=== PATIENT | female | born 2000 | race Caucasian/White ===

== ENCOUNTER 2020-10-16 11:05 | Emergency (ER) | payer OTHER, SELFPAY ==
--- NOTE | 2020-10-16 11:14 | PC.NURSE ---
Pt arrived to unit via EMS- cooperative w/ changeover.
[2020-10-16 11:26] VITALS: BP 131/75; PULSE 91; RESP 20; TEMP 36.8; BMI 29.4
[2020-10-16 11:34] VITALS: RESP 20
--- NOTE | 2020-10-16 11:59 | ED_ITS ---
HPI - Anxiety General Chief Complaint: Psychiatric Symptoms Stated Complaint: ANXIETY Time Seen by Provider: 10/16/20 11:51 Source: EMS Mode of arrival: EMS Limitations: no limitations History of Present Illness HPI narrative: This is a pleasant 19-year-old female with past medical history that is significant for anxiety and depression who presents via EMS from work after having a panic attack. She reports that she has history of pretty significant anxiety as well as depression that was onset after several years ago she was on antidepressant medication however she moved from floor to mass and was feeling well so she stopped taking her antidepressants and antianxiety medication however soon after her symptoms started again and she does not have any primary care for psych provider and she has been on her medications. She is not sure what she was on in [place] but has been offered for past couple years. She denies any suicidal or homicidal ideation. States she does have history of panic attacks and today while at work she felt like she could not concentrate she filled or wound and started to hyperventilate and felt dazed started to have panic attack. States similar symptoms with prior episodes. States she does not have any specific triggers but does report that she feels she needs to be with her mother in [place] sometimes she misses her and this is also compounding her factors. MD complaint: anxiety Symptoms: dyspnea Severity: moderate Associated symptoms: denies other symptoms Related Data Previous Rx's Medication Instructions Recorded hydroxyzine HCl 25 mg PO BID PRN #14 tab 10/16/20 Allergies Allergy/AdvReac Type Severity Reaction Status Date / Time No Known Allergies* Allergy Uncoded 06/21/20 21:04 Review of Systems Review of Systems: Constitutional: No Weight loss, No Fever, No Chills, No Night Sweats, No Fatigue, No Malaise ENT/Mouth: No Hearing loss, No Ear Pain, No Nasal Congestion, No Sinus Pain, No Hoarseness, No sore throat, No Rhinorrhea, No Swallowing Difficulty Eyes: No Eye Pain, No Swelling, No Redness, No Foreign Body, No Discharge, No Vision Changes Cardiovascular: No Chest Pain, No SOB, No Dyspnea on Exertion, No Orthopnea, No Edema, No Palpitations Respiratory: No Cough, No Sputum, No Wheezing, No Smoke Exposure, No Dyspnea Gastrointestinal: No Nausea, No Vomiting, No Diarrhea, No Constipation, No abdominal Pain, No Hematochezia, No Melena Genitourinary: no irregular bleeding, No Dysuria, No Urinary Frequency, No Hematuria, No Urinary Incontinence, No Urgency, No Flank Pain Musculoskeletal: No joint pain, No Myalgias, No Joint Swelling Skin: No Skin Lesions, No rash Neuro: No Weakness, No Numbness, No Paresthesias, No Loss of Consciousness, No Dizziness, No Headache Psych: + Anxiety/Panic, No Depression, No SI/HI/AH/ Heme/Lymph: No Bruising, No Bleeding,No Lymphadenopathy Endocrine: No Polyuria, No Polydipsia, No Temperature Intolerance Yes all other systems are reviewed and are negative [facility] Past Medical History Medical History (Updated 10/16/20 @ 12:49 by Marcos Guardado NP) Headache Surgical History (Updated 10/16/20 @ 11:32 by Lashawn Stanton) History of appendectomy Hx of section Hx of tonsillectomy Social History Social History Smoking Status: Never smoker Use of substances other than those prescribed or required for medical reasons: Yes Substance Use Type: Marijuana Advance Directives: No Advance Directives Information Provided: Yes Physical Exam Vital Signs: Vital Signs: Last Vital Signs Temp 98.2 F 10/16/20 11:26 Pulse 91 10/16/20 11:26 Resp 20 10/16/20 12:00 BP 131/75 10/16/20 11:26 Body Mass Index 29.4 Reviewed Const: General: cooperative, healthy appearing and anxious; No acute distress or intoxicated appearing Nutritional Appearance: average body habitus Orientation/consciousness: patient oriented x3 HENMT: Head: Yes normal to inspection Ears: hearing grossly normal bilaterally Eyes: General: appearance normal, both eyes and all related structures Visual Clemons: normal visual clemons by confrontation Neck: Neck: Yes normal visual inspection, No positive Brudzinski's sign, No positive Kernig's sign and No tender Thyroid: Thyroid normal Chest: Chest palpation & inspection: normal inspection of the chest Resp: Effort & Inspection: normal respiratory effort Cardio: Jugular venous distension: no JVD Rhythm: regular rhythm Heart sounds: S1 normal heart sound present GI: Inspection: Yes normal to inspection Palpation (GI): Soft to palpation Percussion: Yes normal to percussion Auscultation: normal bowel sounds : General: Yes no CVA tenderness Back/Spine/Pelvis: Back: no CVA tenderness Skin: General skin exam: no rashes or lesions noted Neuro: General: patient oriented x3 Extrem: General: Yes normal to inspection Course Course Course Narrative: Offers no medical complaints. Will obtain UA, U preg and U tox and consult care team for evaluation and referrals. Reevaluation(s) Reevaluation #1: Evaluate by the care team recommendation for outpatient services. No SI or HI. Referrals made to outpatient psych as well as PCP. She feels comfortable she is satisfied and very receptive to the care. Will start her on low-dose hydroxyzine and advise for return and close outpatient follow- up. Consultations Consultation #1: Care team MDM - Anxiety Lab Data Labs: Lab Results 10/16/20 10/16/20 Range/Units 12:06 12:06 Urine Color YELLOW Urine Appearance HAZY Urine pH 6.0 (5.0-8.0) Ur Specific [place] 1.025 (1.005-1.025) Urine Protein NEG (NEG-TRACE) MG/DL Urine Glucose (UA) NEG (NEG) MG/DL Urine Ketones NEG (NEG) MG/DL Urine Blood NEG (NEG) Urine Nitrite NEG (NEG) Ur Leukocyte Esterase NEG (NEG) Urine Test NEGATIVE (NEGATIVE) Urine Opiates Screen Not Detected (Not Detect) Ur Barbiturates Screen Not Detected (Not Detect) Ur Phencyclidine Scrn Not Detected (Not Detect) Ur Amphetamines Screen Not Detected (Not Detect) U Benzodiazepines Scrn Not Detected (Not Detect) Urine Cocaine Screen Not Detected (Not Detect) U Marijuana (THC) Screen POSITIVE H (Not Detect) Discharge Plan Discharge Clinical Impression: Acute anxiety Patient Disposition: Home, Self-Care Instructions: Anxiety (ED) Additional Instructions: Well-balanced diet Plenty of sleep Avoid any stress and triggering events Take medication as prescribed Follow-up with outpatient providers as referred by the care team Return if any concerns or worsening symptoms Thank you Prescriptions: New hydroxyzine HCl 25 mg tablet 25 mg PO BID PRN (Reason: anxiety) Qty: 14 RF: 0 Referrals: Judi Lopez MD [Physician] - 3 days
[2020-10-16 12:00] VITALS: RESP 20
--- NOTE | 2020-10-16 12:01 | PC.NURSE ---
CARE team call per Carina Guardado
[2020-10-16 12:15] LABS: Glucose Urine UA NEG (NEG); Leukocyte Esterase Urine NEG (NEG); Nitrite Urine NEG (NEG); Specific Gravity - Urine 1.025 (1.005-1.025); Urine Blood NEG (NEG); Urine Ketones NEG (NEG); Urine Protein NEG (NEG-TRACE)
--- NOTE | 2020-10-16 12:15 | PC.NURSE ---
CARE team in w/ pt.
[2020-10-16 12:16] LABS: Appearance Urine HAZY; Color Urine YELLOW
[2020-10-16 12:17] LABS: UPreg QC Valid YES; Urine Pregnancy NEGATIVE (NEGATIVE)
[2020-10-16] MEDS: Acetaminophen 325 MG TABLET 650 MG PO (12:24)
[2020-10-16 12:37] LABS: Amphetamine Screen Urine Not Detected (Not Detect); Barbiturates, Urine Not Detected (Not Detect); Benzodiazepines Screen Urine Not Detected (Not Detect); Cannabinoid Screen Urine POSITIVE (Not Detect); Cocaine Screen Urine Not Detected (Not Detect); Opiate Screen Urine Not Detected (Not Detect); Phencyclidine Screen Urine Not Detected (Not Detect)
--- NOTE | 2020-10-16 12:42 | MHC.CARE ---
CARE Team consulted with patient she moved from [place] in March 2020 and has been adjusting in [place]. 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 She has been depressed since this has been a huge adjustment and had a panic attack in her job witch had her arrived to the [facility]. She was provided with OP referral and provided information on calling insurance to be able to get a primary doctor. She was explained the protocol of [place] on providers and therapist in the community. She will be following up with he steps needed to be able to have providers in place. She will be discharged with information for her to follow up with.
== END 2020-10-16 13:15 | disposition home or self-care (01) ==
PROVIDERS: Emergency Provider Emergency Medicine Emergency Medical Services
DX: F41.1 Generalized anxiety disorder (principal); F33.1 Major depressive disorder, recurrent, moderate; Z79.899 Other long term (current) drug therapy
CPT/HCPCS: 80307; 81003; 81025; 99283; 99284

== ENCOUNTER 2024-11-18 18:28 | Emergency (ER) | payer OTHER, SELFPAY ==
[2024-11-18 18:41] VITALS: BP 132/86; PULSE 122; RESP 18; TEMP 37.7; O2SAT 99; BMI 33.4
[2024-11-18 20:26] LABS: Influenza A PCR POSITIVE (Negative); Influenza B PCR NEGATIVE (Negative); Resp Syncy Virus RNA Qual PCR NEGATIVE (Negative); SARS COV2 PCR INHOUSE NEGATIVE (Negative)
--- NOTE | 2024-11-18 20:45 | ED.GENADULT ---
HPI - General Adult General Chief complaint: General Medical Stated complaint: Flu like symptoms Related Data Previous Rx's ?Medication ?Instructions ?Recorded hydroxyzine HCl 25 mg tablet 25 mg PO BID PRN anxiety #14 tabs 10/16/20 Allergies Allergy/AdvReac Type Severity Reaction Status Date / Time No Known Allergies Allergy Verified 11/18/24 18:46 PMFSH Past Medical History Medical History (Updated 11/19/24 @ 00:01 by Bryan Ellis) Headache Surgical History (Updated 10/16/20 @ 11:32 by Lashawn Stanton) Hx of section History of appendectomy Hx of tonsillectomy Social History Social History Substance Use Type: Marijuana Advance Directives: No Advance Directives Information Provided: No Physical Exam ED Vital Signs: Vital Signs - 24 hr 11/18/24 18:41 Temperature 99.9 F Pulse Rate 122 H Respiratory Rate 18 Blood Pressure 132/86 Pulse Oximetry 99 Oxygen Delivery Method Room Air BMI result Body Mass Index 33.4 Course Course Course Narrative: This is an RME: Additional HPI, ROS, PE not included below will be deferred to primary provider. RME assessment and note performed by: Julia Wiley PA-C This is a 24-year-old female who presents emergency department with concerns for headache, cough, ear congestion, body aches, multiple sick contacts at home. Plan: viral swabs Reevaluation(s) Reevaluation #1: Patient left without completing treatment. Medical Decision Making Lab Data Labs: Lab Results 11/18/24 Range/Units 19:34 Influenza Type A (PCR) POSITIVE A (Negative) Influenza Type B (PCR) NEGATIVE (Negative) RSV RNA Qual (PCR) NEGATIVE (Negative) SARS-CoV-2 RNA (RT-PCR) NEGATIVE (Negative) Discharge Plan Discharge Clinical Impression: Influenza Patient Disposition: Left W/O Completing Treatment Prescriptions: No Action hydroxyzine HCl 25 mg tablet 25 mg PO BID PRN (Reason: anxiety) Qty: 14 0RF Discharge Date/Time: 11/18/24 23:18
== END 2024-11-18 23:18 | disposition left against medical advice (07) ==
LOC: HO.ED 22:36
PROVIDERS: Emergency Provider Emergency Medicine
DX: J10.1 Influenza due to other identified influenza virus with other respiratory manifestations (principal); R51.9 Headache, unspecified; R05.9 Cough, unspecified; Z03.818 Encounter for observation for suspected exposure to other biological agents ruled out
CPT/HCPCS: 0241U; 99281; 99283

== ENCOUNTER 2025-03-14 17:25 | Emergency (ER) | payer SELFPAY ==
--- NOTE | ~2025-03-14 | US_ITS ---
CLINICAL HISTORY: calf pain Venous duplex ultrasound bilateral lower extremity Comparison: None Findings: The visualized deep veins are fully compressible with normal Doppler color flow and spectral tracings. No popliteal cyst. IMPRESSION: 1. Negative for bilateral lower extremity deep vein thrombosis. This document has been electronically signed by: Montez Wilson MD on 03/14/2025 19:58:08
--- NOTE | ~2025-03-14 | XR_ITS ---
CLINICAL HISTORY: chest tightness 2 view chest x-ray Comparison: None Findings: The lungs are clear. Normal size heart. No acute fracture. IMPRESSION: 1. No acute findings. This document has been electronically signed by: Montez Wilson MD on 03/14/2025 18:40:53
--- NOTE | 2025-03-14 17:28 | ECG_ITS ---
Test Reason : cp Blood Pressure : */* mmHG Vent. Rate : 109 BPM Atrial Rate : 109 BPM P-R Int : 122 ms QRS Dur : 78 ms QT Int : 340 ms P-R-T Axes : 53 19 28 degrees QTcB Int : 457 ms Sinus tachycardia Otherwise normal ECG No previous ECGs available Referred By: Generic ED Physician Electronically Signed By: WILFREDO KIM MD
[2025-03-14 17:34] VITALS: BP 134/85; PULSE 106; RESP 20; TEMP 36.9; O2SAT 98; BMI 34.8
--- NOTE | 2025-03-14 17:34 | ED_ITS ---
HPI - General Adult General Chief complaint: General Medical Stated complaint: chest pain, abd pain, legs sore Time Seen by Provider: 03/14/25 18:02 Source: patient and RN notes reviewed Mode of arrival: ambulatory Limitations: no limitations History of Present Illness ED Provider: Julia Lomeli PA-C HPI narrative: This is a 24-year-old female who presents emergency department with multiple concerns. Patient states that over the last 3 days she has had bilateral leg pain, and calf pain. She states that today she developed epigastric pain with associated nausea. She states that just prior to arrival she had developed chest pain. She states that chest pain is constant. denies history of similar symptoms in the past. She denies any recent travel, surgery, or hospitalizations. She denies taking any medications prior to arrival today. She denies any fevers, chills, palpitations, nausea, vomiting, or diarrhea. No constipation. She denies any urinary symptoms. No normal vaginal discharge or bleeding. MD complaint: multiple complaints Onset (ago): day(s) Relieving factors: none Exacerbating factors: none Related Data Previous Rx's ?Medication ?Instructions ?Recorded hydroxyzine HCl 25 mg tablet 25 mg PO BID PRN anxiety #14 tabs 10/16/20 Allergies Allergy/AdvReac Type Severity Reaction Status Date / Time No Known Allergies Allergy Verified 03/14/25 17:37 Review of Systems 2 Review of Systems: Yes all other systems are reviewed and are negative Constitutional: Constitutional: Reports as per [facility] Past Medical History Medical History (Updated 03/14/25 @ 21:05 by TELLO Quiñones) Headache Surgical History (Updated 10/16/20 @ 11:32 by Lashawn Stanton) Hx of section History of appendectomy Hx of tonsillectomy Social History Social History Smoked in Last 30 Days: No Use of substances other than those prescribed or required for medical reasons: No Substance Use Type: Marijuana Advance Directives: No Advance Directives Information Provided: No Patient : No Physical Exam ED Vital Signs: Vital Signs - 24 hr 03/14/25 17:34 03/14/25 18:59 Temperature 98.5 F 98.5 F Pulse Rate 106 H 98 Respiratory Rate 20 17 Blood Pressure 134/85 129/87 Pulse Oximetry 98 Oxygen Delivery Method Room Air Room Air BMI result Body Mass Index 34.8 Const General: cooperative, comfortable and no acute distress Orientation/consciousness: patient oriented x3 Limitations: no limitations HENMT Head: Yes normal to inspection, Yes normocephalic and Yes atraumatic Ears: hearing grossly normal bilaterally General nose exam: Normal external nose present Face and sinus: Yes normal facial exam Mouth: Normal oral and palatal mucosa present, oropharynx normal and moist mucous membranes Throat: Yes posterior oropharynx normal Eyes General: appearance normal, both eyes and all related structures Eyelids: Yes eyelids normal Conjunctivae: conjunctivae normal Sclerae: sclerae normal Pupils: Equal, round and reactive pupils present EOM: EOMs intact bilaterally Neck Neck: Yes normal visual inspection, Yes full ROM and Yes no lymphadenopathy Lymphatic: no lymphadenopathy noted Chest Chest palpation & inspection: normal inspection of the chest Resp Effort & Inspection: normal respiratory effort and able to speak in complete sentences Auscultation: clear to auscultation bilaterally, no crackles, no rales, no rhonchi and no wheezes Cardio Rate: regular rate Rhythm: regular rhythm Heart sounds: S1 normal heart sound present and S2 normal heart sound present GI Other: abdomen is soft, nontender, nondistended Inspection: Yes normal to inspection Skin General skin exam: no rashes or lesions noted Trauma: no lacerations or abrasions Wounds: no wounds Neuro General: patient oriented x3 and moves all extremities Cranial nerves: Yes Equal, round and reactive pupils present Extrem General: Yes normal to inspection Right upper extremity: normal to inspection Left upper extremity: normal to inspection Right lower extremity: normal to inspection Left lower extremity: normal to inspection Course Course Course Narrative: This is a rapid medical exam performed by Pema Reyes NP: Additional HPI, ROS, PE not included below will be deferred to primary provider. Patient is a 24-year-old female presenting with complaint of chest tightness, upper abdominal pain and leg soreness. Symptoms began with legs 3 days ago, complains of bilateral calf pain. Not on OCPs, denies recent travel, nonsmoker, denies family history of blood clots. Mildly tachycardic in triage. Plan: EKG, labs, CXR Reevaluation(s) Reevaluation #1: Patient received in sign-out at change of shift pending troponin which resulted undetectable. The patient rules out for ACS in his stable for discharge Time: 22:51 Medications Administered Discontinued Medications Generic Name Dose Route Start Last Admin Trade Name Abdulaziz PRN Reason Stop Dose Admin Lactated Ringer's 1,000 mls @ 999 mls/hr 03/14/25 20:14 03/14/25 21:52 Lr IV 03/14/25 21:14 Infused .Q1H1M ONE Infusion Acetaminophen 1,000 mg in 100 mls @ 400 mls/hr 03/14/25 20:14 03/14/25 21:24 Ofirmev IV 03/14/25 20:28 Infused ONCE ONE Infusion Medical Decision Making Medical Decision Making [facility] Narrative: this is a 24-year-old female who presents emergency department with concerns of bilateral leg pain, chest pain, and epigastric pain. She denies any shortness for breath. On arrival, blood pressure 134/85, patient tachycardic at 1:06 a.m., repeat vitals shortly after I assess patient, she is normotensive at 129/87, pulse 98, respiration 17, oxygen saturation 98% on room air. She is speaking in full sentences under no acute distress. Bilateral legs with reported tenderness palpation, no peripheral edema. No profound calf tenderness or palpable cords. Strong DP pulse. Abdomen is soft and nontender. Differential diagnoses include DVT, URI, viral syndrome, rhabdo, flu, COVID, RSV. Plan; labs, chest x-ray, ultrasound lower extremities >> Patient with microcytic anemia. She reports that she has had no bloody or black stool. No hemoptysis. She has a history of anemia, we have not seen patient in over 5 years. She states that she is supposed to take iron supplements which she has not been doing. Viral swabs are still pending. Chest x-ray reviewed, no acute findings. D-dimer is less than 150, ultrasound also pending. 2013 - Ultrasound returns, negative for DVT, viral swabs negative. Patient's overall workup today is reassuring. Added repeat troponin to ensure no delta change. Also will medicate with IV fluids, and IV Tylenol for symptomatic relief. She is clinically well-appearing, abdomen is soft, with mild tenderness in the epigastrium, otherwise very well-appearing, we will continue to monitor pending clinical improvement. 2099 - Troponin is pending, as well as IV fluids and Tylenol. Sign-out given to my colleague, Yoan garcia pending symptomatic improvement and disposition. Differential Diagnosis Differential Diagnoses: The differential diagnosis associated with the presentation includes see above Lab Data MDM Lab Attestation statement: I reviewed the patient's lab results. patient with no leukocytosis, she does have a microcytic anemia with an H&H of 9.6/31.6 > she states that she has a history of anemia, chemistry with no significant electrolyte derangement, beta quant less than 2. 03/14/25 17:51 03/14/25 17:51 Labs: Lab Results 03/14/25 03/14/25 03/14/25 Range/Units 17:51 19:06 20:54 WBC 8.1 (4.8-10.8) X10*3/uL RBC 4.71 (4.20-5.50) X10*6/uL Hgb 9.6 L (12.0-16.0) g/dl Hct 31.6 L (37.0-47.0) % MCV 67.1 L (80.0-98.0) fL MCH 20.4 L (27.0-33.0) pg MCHC 30.4 L (31.0-35.0) g/dl RDW 17.4 H (11.0-16.0) % Plt Count 300 (160-400) X10*3/uL MPV 10.4 (9.4-12.3) fL Immature Gran % (Auto) 0.2 (0.0-0.4) % Neut % (Auto) 59.0 (45-73) % Lymph % (Auto) 31.1 (20-40) % [place] % (Auto) 7.3 (2-11) % Eos % (Auto) 1.9 (0-4) % Baso % (Auto) 0.5 (0-2) % Lymph # (Auto) 2.5 (1.2-4.9) X10*3/uL [place] # (Auto) 0.6 (0.1-1.2) X10*3/uL Eos # (Auto) 0.2 (0.0-0.4) X10*3/uL Baso # (Auto) 0.0 (0.0-0.2) X10*3/uL Abs Immat Gran (auto) 0.02 (0.00-0.03) X10*3/uL Absolute Neuts (auto) 4.8 (2.0-8.3) x10*3/uL Absolute Nucleated RBC 0.000 (0.0-0.012) X10*3/uL Nucleated RBC % (auto) 0.0 (0.0-0.2) /100WBC PT 11.1 (10.9-12.4) SEC INR 1.0 (0.9-1.1) D-Dimer High Sensitivty < 150 NG/ML Sodium 141 (135-145) mmol/L Potassium 3.9 (3.3-5.1) mmol/L Chloride 111 H (96-108) mmol/L Carbon Dioxide 19 L (22-29) mmol/L Anion Gap 15 (12-20) BUN 14 (9-16) mg/dL Creatinine 0.73 (0.5-1.4) mg/dL Estim Creat Clear Calc 142.5 Estimated GFR > 60 Random Glucose 107 (60-115) mg/dL Calcium 9.6 (8.4-10.2) mg/dL Magnesium 1.9 (1.6-2.6) mg/dL Total Bilirubin 0.4 (0.0-1.0) mg/dL AST 22 (5-31) U/L ALT 26 (0-31) U/L Alkaline Phosphatase 59 (39-117) U/L Total Creatine Kinase 85 (26-140) U/L Troponin I High Sens < 2.7 (<3.5-17.0) ng/L Total Protein 7.2 (6.5-8.0) g/dL Albumin 4.5 (3.5-5.0) g/dL Beta HCG, Quant < 2 mIU/mL Influenza Type A (PCR) NEGATIVE (Negative) Influenza Type B (PCR) NEGATIVE (Negative) RSV RNA Qual (PCR) NEGATIVE (Negative) SARS-CoV-2 RNA (RT-PCR) NEGATIVE (Negative) Independent Interpretation I performed an independent interpretation of an: EKG Interpretation: EKG sinus tachycardic at 109 beats per minute, AR interval 122, QT QTC 340/457, no STEMI. Radiology Impression Discussion of test interpretation with radiology: I have reviewed the radiologist's reading. Radiologist Impression: Findings: The visualized deep veins are fully compressible with normal Doppler color flow and spectral tracings. No popliteal cyst. IMPRESSION: 1. Negative for bilateral lower extremity deep vein thrombosis. This document has been electronically signed by: Montez Wilson MD on 03/14/2025 19:58:08 Dictated By: Montez Wilson MD 2 view chest x-ray Comparison: None Findings: The lungs are clear. Normal size heart. No acute fracture. IMPRESSION: 1. No acute findings. This document has been electronically signed by: Montez Wilson MD on 03/14/2025 18:40:53 Dictated By: Montez Wilson MD Discharge Plan Discharge Clinical Impression: Myalgia Patient Disposition: Home, Self-Care Instructions: Musculoskeletal Pain (ED) Additional Instructions: You were seen in the emergency department today. Your overall workup today was reassuring. It is unclear what is causing you to have the symptoms however your overall workup today was reassuring. Your chest x-ray was normal, your ultrasound does not show any blood clots in your legs, you tested negative for COVID, flu, RSV. You may have a virus that is causing you to have the symptoms. You are anemic. you need to be taking [id number] iron supplementation, and I am recommending that you follow-up with your primary care physician for close monitoring. Please be advised that iron supplements can cause your stool to be dark. However please monitor for any significantly bloody or black stool. If any new or worsening symptoms occur including but not limited to severe chest pain, shortness of breath, please seek emergent care. Prescriptions: No Action hydroxyzine HCl 25 mg tablet 25 mg PO BID PRN (Reason: anxiety) Qty: 14 0RF Print Language: Stateless
[2025-03-14 17:59] LABS: MANUAL DIFF FLAG NO
[2025-03-14 18:00] LABS: Basophils Percent Auto 0.5 % (0-2); Eosinophils Absolute Auto 0.2 X10*3/uL (0.0-0.4); Eosinophils Percent Auto 1.9 % (0-4); Hematocrit 31.6 % (37.0-47.0); Hemoglobin 9.6 g/dl (12.0-16.0); Imm Gran Abs Auto 0.02 X10*3/uL (0.00-0.03); Imm Gran Pct Auto 0.2 % (0.0-0.4); Lymphocytes Absolute Auto 2.5 X10*3/uL (1.2-4.9); Lymphocytes Percent Auto 31.1 % (20-40); Mean Corpuscular HGB Conc 30.4 g/dl (31.0-35.0); Mean Corpuscular Hemoglobin 20.4 pg (27.0-33.0); Mean Corpuscular Volume 67.1 fL (80.0-98.0); Mean Platelet Volume 10.4 fL (9.4-12.3); Monocytes Absolute Auto 0.6 X10*3/uL (0.1-1.2); Monocytes Percent Auto 7.3 % (2-11); Neutrophils Absolute Auto 4.8 x10*3/uL (2.0-8.3); Platelet Count 300 X10*3/uL (160-400); Red Blood Count 4.71 X10*6/uL (4.20-5.50); Red Cell Distribution Width 17.4 % (11.0-16.0); White Blood Count 8.1 X10*3/uL (4.8-10.8)
[2025-03-14 18:07] LABS: Prothrombin Time 11.1 SEC (10.9-12.4)
[2025-03-14 18:29] LABS: Alanine Aminotransferase 26 U/L (0-31); Albumin Level 4.5 g/dL (3.5-5.0); Alkaline Phosphatase 59 U/L (39-117); Anion Gap 15 (12-20); Aspartate Amino Transferase 22 U/L (5-31); Bilirubin Total 0.4 mg/dL (0.0-1.0); Blood Urea Nitrogen 14 mg/dL (9-16); Calcium 9.6 mg/dL (8.4-10.2); Carbon Dioxide 19 mmol/L (22-29); Chloride 111 mmol/L (96-108); Creatinine Clr Calc Pharmacy 142.5; Estimated Glomerular Filt Rate > 60; Glucose Random 107 mg/dL (60-115); HCG Quantitative < 2 mIU/mL; Potassium 3.9 mmol/L (3.3-5.1); Sodium 141 mmol/L (135-145); Total Protein 7.2 g/dL (6.5-8.0)
[2025-03-14 18:33] LABS: Magnesium 1.9 mg/dL (1.6-2.6)
[2025-03-14 18:44] LABS: D Dimer High Sensitivity < 150 NG/ML
[2025-03-14 18:59] VITALS: BP 129/87; PULSE 98; RESP 17; TEMP 36.9
[2025-03-14 19:50] LABS: Influenza A PCR NEGATIVE (Negative); Influenza B PCR NEGATIVE (Negative); Resp Syncy Virus RNA Qual PCR NEGATIVE (Negative); SARS COV2 PCR INHOUSE NEGATIVE (Negative)
[2025-03-14] MEDS: Lactated Ringers 1,000 ML 999 ML IV (20:54)
--- NOTE | 2025-03-14 20:54 | PC.NURSE ---
#20 PIV initiated to left AC, troponin collected at this time and sent to lab. Medicated per NOV.
[2025-03-14] MEDS: Acetaminophen 1,000 MG/100 ML PIGGYBACK 400 MG IV (21:02)
[2025-03-14 21:18] LABS: Troponin-I High Sensitivity < 2.7 ng/L (<3.5-17.0)
[2025-03-14 23:01] VITALS: BP 114/63; PULSE 84; RESP 17; TEMP 36.7; O2SAT 99
== END 2025-03-14 23:01 | disposition home or self-care (01) ==
PROVIDERS: Physician Assistant Medical; Registered Nurse Emergency; Emergency Provider Internal Medicine
DX: M79.10 Myalgia, unspecified site (principal); M79.662 Pain in left lower leg; M79.661 Pain in right lower leg; Z03.818 Encounter for observation for suspected exposure to other biological agents ruled out
CPT/HCPCS: 0241U; 36415; 71046; 80053; 82550; 83735; 84484; 84702; 85025; 85379; 85610; 93005; 93970; 96361; 96374; 99284; 99285; J0131; J7120

== ENCOUNTER → 2025-03-14 17:28 | Outpatient (BNV) | payer MEDICAID, SELFPAY | PROVIDERS: Emergency Provider Internal Medicine; Visit Provider Internal Medicine Cardiovascular Disease | DX: R00.0 Tachycardia, unspecified (principal) | CPT/HCPCS: 93010 ==

== ENCOUNTER → 2025-03-14 17:38 | Outpatient (BNV) | payer SELFPAY | PROVIDERS: Emergency Provider Internal Medicine; Visit Provider Radiology Diagnostic Radiology | DX: M79.661 Pain in right lower leg (principal); M79.662 Pain in left lower leg; R07.89 Other chest pain | CPT/HCPCS: 71046; 93970 ==